=== PATIENT | male | born 1950 | race Caucasian/White ===

== ENCOUNTER → 2024-05-04 | Outpatient (REF) | payer MEDICARE, BC, OTHER ==
[~2024-05-04] MED LIST: CARD120T4 PO; DULO1CAP6 PO; ELIQ5TAB PO; FINA5TAB2 PO; HYDR12.55 PO; LASI20TA3 PO; LOSA100T46 PO; SOTA160T PO
== END ==
LOC: M LAB REF 13:09 → MERGE 13:09
PROVIDERS: ATTEND Ophthalmology
DX: H11.442 Conjunctival cysts, left eye (principal); L82.0 Inflamed seborrheic keratosis; H02.821 Cysts of right upper eyelid

== ENCOUNTER → 2024-05-18 | Outpatient (CLI) | payer MEDICARE, BC | LOC: M RAD 14:40 | PROVIDERS: ATTEND Internal Medicine Pulmonary Disease | DX: R91.1 Solitary pulmonary nodule (principal); R91.8 Other nonspecific abnormal finding of lung field ==

== ENCOUNTER → 2025-02-06 | Outpatient (CLI) | payer MEDICARE, BC ==
[2025-02-06 16:00] LABS: PLATELET COUNT, AUTOMATED 235 10^3/uL (150-450)
[2025-02-06 16:24] LABS: ALT/SGPT 17.0 U/L (7.0-40); AST/SGOT 15.0 U/L (<34); CALCIUM LEVEL 9.0 MG/DL (8.3-10.6); CARBON DIOXIDE LEVEL 26.0 MMOL/L (20-31); CHLORIDE LEVEL 103.0 MMOL/L (98-107); CREATININE FOR GFR 0.94 MG/DL (0.70-1.30); GLOMERULAR FILTRATION RATE 85.1 (>42); MAGNESIUM LEVEL 2.2 MG/DL (1.8-2.4); POTASSIUM SERUM 3.6 MMOL/L (3.5-5.1); SODIUM LEVEL 141.0 MMOL/L (136-145)
== END ==
LOC: M RAD 15:17
PROVIDERS: ATTEND Nurse Practitioner Family
DX: E87.6 Hypokalemia (principal); I48.91 Unspecified atrial fibrillation; R06.02 Shortness of breath

== ENCOUNTER 2025-05-10 15:58 | Emergency (ER) | payer MEDICARE, BC ==
[2025-05-10 16:23] LABS: BASO # 0.1 10^3/uL (0.0-0.2); BASO % 0.6 % (0.0-1.0); EOS # 0.2 10^3/uL (0.0-0.5); EOS % 2.0 % (0.0-3.0); LYMPH # 2.0 10^3/uL (1.5-5.0); LYMPH % 21.0 % (24.0-44.0); MONO # 0.7 10^3/uL (0.0-0.8); MONO % 7.9 % (2.0-8.0); NEUTROPHILS # 6.4 10^3/uL (1.5-8.5); NEUTROPHILS % 68.1 % (36.0-66.0); PLATELET COUNT, AUTOMATED 197 10^3/uL (150-450)
[2025-05-10 16:49] LABS: INR 1.21
[2025-05-10 16:52] LABS: ALT/SGPT 31 U/L (7.0-40); AST/SGOT 43 U/L (<34); CALCIUM LEVEL 8.1 MG/DL (8.3-10.6); CARBON DIOXIDE LEVEL 24 MMOL/L (20-31); CHLORIDE LEVEL 103 MMOL/L (98-107); CK-MB VALUE MASS < 1.0 NG/ML (<3.6); CREATININE FOR GFR 0.80 MG/DL (0.70-1.30); GLOMERULAR FILTRATION RATE > 90.0 (>42); POTASSIUM SERUM 4.5 MMOL/L (3.5-5.1); SODIUM LEVEL 140 MMOL/L (136-145)
[2025-05-10 16:54] LABS: CPK CREATINE PHOSPHOKINASE 104 U/L (46-171)
[2025-05-10 18:18] LABS: CK-MB VALUE MASS < 1.0 NG/ML (<3.6)
[2025-05-10 18:19] LABS: CPK CREATINE PHOSPHOKINASE 84 U/L (46-171)
[2025-05-10] MEDS ORDERED: ISOVUE-370 76% 100 ML VIAL As Ordered ONE (18:51)
[2025-05-10] MEDS ORDERED: DULO1CAP4 PO (19:09)
[2025-05-10] MEDS ORDERED: CLOP75TA2 PO (19:09)
[2025-05-10] MEDS ORDERED: HYDR25OIN TOP (19:09)
[2025-05-10] MEDS ORDERED: METO1TAB87 PO (19:09)
[2025-05-10] MEDS ORDERED: CIAL5TAB PO (19:09)
[2025-05-10] MEDS ORDERED: TAMS-18 PO (19:09)
[2025-05-10] MEDS ORDERED: POTA-151 PO (19:09)
[2025-05-10] MEDS ORDERED: FURO20TA2 PO (19:09)
[2025-05-10] MEDS ORDERED: LOSA25TA13 PO (19:09)
[2025-05-10] MEDS ORDERED: HOME MED LIST COMPLETE! XX SCH (19:15)
[2025-05-10 21:20] VITALS: BP 167/78; TEMP 98.1; O2SAT 95
[2025-05-10 21:37] VITALS: O2SAT 98
== END 2025-05-10 23:00 | disposition home or self-care (01) ==
LOC: M ED 15:58
DX: R07.9 Chest pain, unspecified (principal); R06.02 Shortness of breath; R60.0 Localized edema; J90 Pleural effusion, not elsewhere classified; I10 Essential (primary) hypertension; E78.5 Hyperlipidemia, unspecified; Z86.79 Personal history of other diseases of the circulatory system; Z79.01 Long term (current) use of anticoagulants; Z88.0 Allergy status to penicillin; Z79.899 Other long term (current) drug therapy
CPT/HCPCS: 36415; 71045; 71275; 80047; 80048; 80076; 82550; 82553; 83690; 83880; 84443; 84484; 85025; 85610; 85730; 87486; 87581; 87633; 87798; 93005; 93041; 93970; 94760; 99285; Q9967